=== PATIENT | female | born 1950 | race Caucasian/White ===

== ENCOUNTER 2016-04-12 23:35 | Emergency (ER) | payer BC ==
[~2016-04-12] VITALS: Ht 160 cm; Wt 54.4 kg
[~2016-04-12 23:35] MED LIST: LORAZEPAM INJ 2 MG/ML VIAL ONE
[2016-04-12 23:57] LABS: BASOPHILS % (AUTO) 0.6 % (0.0-2.0); DIFF TOTAL % 100 %; EOSINOPHILS # (AUTO) 0.4 /CMM (0.0-0.7); EOSINOPHILS % (AUTO) 4.5 % (0.0-6.0); HEMATOCRIT 36 % (33-45); LYMPHOCYTES # (AUTO) 2.5 /CMM (0.8-4.8); MEAN CORPUSCULAR HEMOGLOBIN 30 PG (26.0-33.0); MEAN CORPUSCULAR HGB CONC 33 g/dl (31.0-36.0); MEAN CORPUSCULAR VOLUME 91 fL (82-100); MONOCYTES # (AUTO) 0.5 /CMM (0.1-1.30); MONOCYTES % (AUTO) 6.5 % (2.0-12.0); NEUTROPHILS # (AUTO) 4.6 /CMM (1.8-8.9); NEUTROPHILS % (AUTO) 57.4 % (43.0-81.0); PLATELET COUNT (AUTO) 238 /CMM (150-450); RED BLOOD CELL COUNT(AUTO) 3.98 MIL/uL (4.0-5.2); WHITE BLOOD COUNT (AUTO) 7.9 K/uL (4.3-11.0)
[2016-04-13] MEDS ORDERED: LORAZEPAM INJ 2 MG/ML VIAL IVP ONE
[2016-04-13 00:06] LABS: ANION GAP 16 (5-14); CALCIUM, SERUM 8.8 mg/dL (8.5-10.1); CARBON DIOXIDE 26 mmol/L (21-32); CHLORIDE 105 mmol/L (98-107); GFR 55 mL/min (>60); GLUCOSE 126 mg/dL (74-106); POTASSIUM 3.9 mmol/L (3.5-5.1); SODIUM SERUM 143 mmol/L (136-145); UREA NITROGEN, BLOOD 23 mg/dL (7-18)
[2016-04-13 00:11] LABS: INR 0.94 (0.87-1.13); PROTHROMBIN TIME 10.1 SECS (9.5-12.7)
[2016-04-13] MEDS ORDERED: IV SET PRIMARY 1 EA INFUS.SET MC ONE (00:54)
[2016-04-13] MEDS ORDERED: IV NS 0.9% 1,000 ML ONE (00:54)
[2016-04-13] MEDS ORDERED: IV NS 0.9% 1,000 ML BAG IV ONE (02:00)
[2016-04-13 02:05] LABS: KETONES,URINE NEGATIVE (NEGATIVE); LEUKOCYTE ESTERASE ,URINE NEGATIVE (NEGATIVE)
[2016-04-13 02:18] LABS: ADD UA MICROSCOPIC YES
[2016-04-13 02:37] LABS: ADD URINE CULTURE NO; RBC,URINE 0-2 /HPF (0-2); WBC,URINE 0-2 /HPF (0-3)
[2016-04-13 02:46] LABS: CANNABINOID, URINE NEGATIVE (NEGATIVE); PHENCYCLIDINE SCREEN,URINE NEGATIVE (NEGATIVE)
[2016-04-13 03:11] VITALS: BP 117/61
== END 2016-04-13 03:11 | disposition home or self-care (01) ==
LOC: ER 23:36
DX: R56.9 Unspecified convulsions (principal); I10 Essential (primary) hypertension; C44.90 Unspecified malignant neoplasm of skin, unspecified; Z88.0 Allergy status to penicillin; Z88.1 Allergy status to other antibiotic agents; Z88.8 Allergy status to other drugs, medicaments and biological substances; R79.1 Abnormal coagulation profile
CPT/HCPCS: 36415; 70450; 71010; 80048; 80305; 81001; 85025; 85730; 93005; 96361; 96374; 99285; A4606; G0481; J2060; J7030; Z7610; 81000-TC; G6040-TC